=== PATIENT | male | born 1955 | race Caucasian/White ===

== ENCOUNTER 2016-04-29 | Outpatient (CLI) | payer BC | END 2016-04-29 15:51 | disposition EMS.NT | DX: R00.0 Tachycardia, unspecified (principal) ==

== ENCOUNTER 2017-03-10 19:43 | Outpatient (CLI) | payer BC | END 2017-03-10 19:44 | disposition short-term general hospital (02) | LOC: EMS 19:43 | PROVIDERS: ATTEND Surgery | DX: R00.2 Palpitations (principal); R53.83 Other fatigue | CPT/HCPCS: A0425; A0427 ==

== ENCOUNTER 2020-10-03 15:14 | Outpatient (CLI) | payer MEDICARE, OTHER | END 2020-10-03 15:15 | disposition short-term general hospital (02) | LOC: EMS 15:14 | DX: R10.31 Right lower quadrant pain (principal); R11.0 Nausea; I10 Essential (primary) hypertension | CPT/HCPCS: A0425; A0429 ==

== ENCOUNTER 2020-10-18 11:59 | Emergency (ER) | payer MEDICARE, OTHER ==
[2020-10-18 12:35] LABS: BASOPHILS # (AUTO) 0.1 10^3/uL (0.0-0.1); EOSINOPHILS # (AUTO) 0.1 10^3/uL (0.0-0.7); EOSINOPHILS % (AUTO) 1.8 %; HCT - HEMATOCRIT 45.2 % (42.0-52.0); HGB - HEMOGLOBIN 15.2 g/dL (14.0-18.0); LYMPHOCYTES # (AUTO) 1.2 10^3/uL (1.5-3.5); LYMPHOCYTES % (AUTO) 23.1 %; MEAN CORPUSCULAR HEMOGLOBIN 29.3 pg (27.0-31.0); MEAN CORPUSCULAR HGB CONC 33.6 g/dL (32.0-36.0); MEAN CORPUSCULAR VOLUME 87.1 fL (80.0-94.0); MEAN PLATELET VOLUME 9.4 fL (7.4-11.4); MONOCYTES # (AUTO) 0.5 10^3/uL (0.0-1.0); MONOCYTES % (AUTO) 9.1 %; NEUTROPHILS # (AUTO) 3.3 10^3/uL (1.5-6.6); NEUTROPHILS % (AUTO) 64.6 %; PLT - PLATELET COUNT 157 10^3/uL (130-450); RED BLOOD COUNT 5.19 10^6/uL (4.70-6.10); RED CELL DISTRIBUTION WIDTH 15.1 % (12.0-15.0); WHITE BLOOD COUNT 5.1 x10^3/uL (4.8-10.8)
[2020-10-18 12:50] LABS: ALBUMIN 4.4 g/dL (3.2-5.5); ALBUMIN/GLOBULIN RATIO 1.4 (1.0-2.2); BILIRUBIN,TOTAL 0.9 mg/dL (0.2-1.0); CALCIUM 9.4 mg/dL (8.5-10.3); CREATININE 1.3 mg/dL (0.6-1.2); POTASSIUM 3.9 mmol/L (3.5-5.0); TOTAL PROTEIN 7.6 g/dL (6.7-8.2)
[2020-10-18 13:11] LABS: BILIRUBIN,URINE NEGATIVE (NEGATIVE); GLUCOSE, URINE (UA) NEGATIVE (NEGATIVE); KETONES,URINE (UA) NEGATIVE (NEGATIVE); LEUKOCYTE ESTERASE, URINE TRACE (NEGATIVE); NITRITE,URINE POSITIVE (NEGATIVE); OCCULT BLOOD,URINE LARGE (NEGATIVE); PROTEIN,URINE 30 mg/dL (NEGATIVE); UROBILINOGEN,URINE 1 (NORMAL) E.U./dL (NORMAL)
--- NOTE | 2020-10-18 13:27 | ED Physician Documentation ---
History of Present Illness - Stated complaint Stated Complaint: MALE - Chief complaint Chief Complaint: Abd Pain - History obtained from History obtained from: Patient - History of Present Illness Pain level max: 9 Pain level now: 3 - Additonal information Additional information: Patient is a 65-year-old male who presents to the emergency department with ongoing right flank pain. He states about 8 days ago he was diagnosed with a ureteral stone at [facility] in [place]. He states he was placed on pain medication and told that the stone was 6 mm and in the mid ureter. He states he returned to [facility] in [place] 2 days later as he was still having pain and they treated him and released him. He then saw a urologist at [place] who placed a ureteral stent. He states that since the stent placement for 4 days he has noted blood in his urine. He is currently off his Xarelto. Nothing makes it better or worse. He states he contacted the urologist who was not concerned about the hematuria. He then contacted his administrative office specialist who told him to come to the emergency department to have his hemoglobin and hematocrit checked as well as a repeat CT scan for his kidney stone. Patient is afebrile. No fevers at home. No vomiting. No diarrhea. No constipation. Currently feeling well. Review of Systems Ten Systems: 10 systems reviewed and negative Constitutional: denies: Fever, Chills Nose: denies: Rhinorrhea / runny nose, Congestion GI: denies: Vomiting, Diarrhea Skin: denies: Rash Musculoskeletal: denies: Neck pain, Back pain Neurologic: denies: Headache PD PAST MEDICAL HISTORY - Past Medical History Past Medical History: Yes Cardiovascular: Hypertension, High cholesterol, Atrial fibrillation - Present Medications Home Medications: Ambulatory Orders Medication Instructions Recorded Confirmed Propafenone HCl 225 mg PO BID 11/13/15 11/13/15 Rivaroxaban [Xarelto] 20 mg PO DAILY 11/13/15 11/13/15 Simvastatin 20 mg PO DAILY 11/13/15 11/13/15 Tamsulosin [Flomax] 0.4 mg PO ONCE #7 capsule 11/13/15 allopurinoL [Allopurinol] 300 mg PO DAILY 11/13/15 11/13/15 oxyCODONE/ACET 5/325 [Percocet 5 1 - 2 each PO Q6H PRN #20 tablet 11/13/15 mg/325 mg] - Allergies Allergies/Adverse Reactions: Allergies Allergy/AdvReac Type Severity Reaction Status Date / Time lisinopril AdvReac Unknown Verified 10/18/20 12:08 - Social History Does the pt smoke?: No Smoking Status: Never smoker Does the pt drink ETOH?: No Does the pt have substance abuse?: No - Immunizations Immunizations are current?: Yes PD ED PE NORMAL - Vitals Vital signs reviewed: Yes - General General: Alert and oriented X 3, No acute distress - HEENT HEENT: Moist mucous membranes - Neck Neck: Supple, no meningeal sign - Cardiac Cardiac: Strong equal pulses, Other (Irregular) - Respiratory Respiratory: No respiratory distress, Clear bilaterally - Abdomen Abdomen: Soft, Non tender, Non distended - Back Back: No CVA TTP - Derm Derm: Warm and dry - Extremities Extremities: No edema - Neuro Neuro: Alert and oriented X 3 Results - Vitals Vitals: Vital Signs - 24 hr 10/18/20 10/18/20 10/18/20 12:08 13:07 15:24 Temperature 36.5 C 36.5 C 37.1 C Heart Rate 62 62 54 L Respiratory 16 16 12 Rate Blood Pressure 166/81 H 166/81 H 173/103 H O2 Saturation 96 96 98 Oxygen O2 Source Room air - Labs Labs: Laboratory Tests 10/18/20 10/18/20 10/18/20 12:30 12:30 12:55 WBC 5.1 RBC 5.19 Hgb 15.2 Hct 45.2 MCV 87.1 MCH 29.3 MCHC 33.6 RDW 15.1 H Plt Count 157 MPV 9.4 Neut # (Auto) 3.3 Lymph # (Auto) 1.2 L [place] # (Auto) 0.5 Eos # (Auto) 0.1 Baso # (Auto) 0.1 Absolute Nucleated RBC 0.00 Nucleated RBC % 0.0 Sodium 133 L Potassium 3.9 Chloride 99 L Carbon Dioxide 24 Anion Gap 10.0 BUN 16 Creatinine 1.3 H Estimated GFR (MDRD) 55 L Glucose 196 H Calcium 9.4 Total Bilirubin 0.9 AST 77 H ALT 71 H Alkaline Phosphatase 105 Total Protein 7.6 Albumin 4.4 Globulin 3.2 Albumin/Globulin Ratio 1.4 Lipase 139 H Urine Color ORANGE Urine Clarity CLEAR Urine pH 5.0 Ur Specific [place] 1.015 Urine Protein 30 H Urine Glucose (UA) NEGATIVE Urine Ketones NEGATIVE Urine Occult Blood LARGE H Urine Nitrite POSITIVE H Urine Bilirubin NEGATIVE Urine Urobilinogen 1 (NORMAL) Ur Leukocyte Esterase TRACE H Urine RBC 0-5 Urine WBC 6-10 H Ur Squamous Epith Cells RARE Squamous Urine Bacteria Rare Ur Microscopic Review INDICATED Urine Culture Comments INDICATED - Rads (name of study) CT abdomen pelvis Radiology: Prelim report reviewed, EMP read contemporaneously, See rad report PD MEDICAL DECISION MAKING - ED course Complexity details: reviewed results, re-evaluated patient, considered differential, d/w patient, d/w family, d/w case consultant ED course: Discussed the case with the patient's urologist, Dr. Alford. A urine culture was sent. We will have the patient continue his ciprofloxacin. If the culture shows an antibiotic change is needed, We will call him to change this. Patient is well-appearing, nontoxic. Afebrile. No evidence of sepsis. Patient counseled regarding signs and symptoms for which I believe and urgent re- evaluation would be necessary. Patient with good understanding of and agreement to plan and is comfortable going home at this time This document was made in part using voice recognition software. While efforts are made to proofread this document, sound alike and grammatical errors may occur. IMPRESSION: 1. Nonobstructing bilateral renal calculi as above. 2. Right ureterovesicular stent with mild prominence of the right renal pelvis relatively stable compared to prior exam. 3. Thickened bladder wall. This could be secondary to incomplete distention. However, similar imaging appearance can be seen with cystitis and clinical correlation is rec ommended. Departure - Departure Disposition: 01 Home, Self Care Clinical Impression: S/P ureteral stent placement UTI (urinary tract infection) Qualifiers: Urinary tract infection type: acute cystitis Hematuria presence: with hematuria Qualified Code(s): N30.01 - Acute cystitis with hematuria Condition: Good Instructions: ED UTI Cystitis Female Follow-Up: Michael Alford CM, MD [Physician No Access] - Within 1 week Comments: Return if you worsen. Follow up with your urologist regarding your stent. Continue your cipro at home. A urine culture was sent today. Discharge Date/Time: 10/18/20 15:25
[2020-10-18 13:44] LABS: BACTERIA,URINE Rare /HPF (None Seen); CLARITY,URINE CLEAR (CLEAR); RBC,URINE 0-5 /HPF (0-5); SQUAMOUS EPITHELIAL CELL,UR RARE Squamous (<= Few)
--- NOTE | 2020-10-18 14:06 | CT Report ---
PROCEDURE: Abdomen/Pelvis WO INDICATIONS: R flank pain, ureteral stone and stent on R TECHNIQUE: Noncontrast 5 mm thick sections acquired from the diaphragms to the symphysis. 5 mm coronal and sagi ttal reformats were then performed. For radiation dose reduction, the following was used: automated exposure control, adjustment of mA and/or kV according to patient size. COMPARISON: CT abdomen pelvis 11/13/2015 FINDINGS: Image quality: Excellent. ABDOMEN: Lung bases: Lung bases are clear. Heart size is normal. Solid organs: Liver and spleen are normal in size. Gallbladder is unremarkable Pancreas is normal in contours. No adrenal nodules. Kidneys are atrophic bilaterally. A right ureterovesicular stent is present with minimal appearance o f renal collecting system prominence not significantly changed compared to prior exam. There is a 6 m m calcification in the superior right upper renal pole increased in size from 3 mm on prior exam. An adjacent punctate calcification is unchanged. A previously identified more linear calcification later ally is no longer visualized. The left kidney demonstrates a 4 mm superior left renal calcification i ncreased from 2 mm on prior exam. There is a new punctate calcification within the lateral aspect of the left upper pole. No hydronephrosis or hydroureter. No ureteral calcifications. Peritoneum and bowel: Unenhanced bowel loops demonstrate normal wall thickness and caliber. No free fluid or air. On prior exam, there is an ill-defined faint soft tissue/fat density adjacent to the ascending colon measuring approximately 3.4 x 4.2 x 3.9 cm. It is again noted relatively similar in s ize. However, it has now developed vomiting calcifications. This is suspected to be related to prior infection or inflammation. Nodes and vessels: No retroperitoneal or mesenteric adenopathy by size criteria. Aorta and inferior vena cava are normal in caliber. Miscellaneous: No ventral hernias. PELVIS: Genitourinary: Bladder is overall incompletely distended with a thickened wall. Miscellaneous: Bilateral fat-containing inguinal hernias. Bones: No suspicious bony lesions. No vertebral body compression fractures. IMPRESSION: 1. Nonobstructing bilateral renal calculi as above. 2. Right ureterovesicular stent with mild prominence of the right renal pelvis relatively stable comp ared to prior exam. 3. Thickened bladder wall. This could be secondary to incomplete distention. However, similar imaging appearance can be seen with cystitis and clinical correlation is recommended. Reviewed by: Kelsy Muse, MD on 10/18/2020 2:04 PM PDT Approved by: Kelsy Muse MD on 10/18/2020 2:04 PM PDT Station ID: [id number]
[2020-10-18 15:25] VITALS: BP 173/103
== END 2020-10-18 15:25 | disposition home or self-care (01) ==
LOC: ED 11:59
DX: N30.01 Acute cystitis with hematuria (principal); Z96.0 Presence of urogenital implants; Z87.442 Personal history of urinary calculi; I10 Essential (primary) hypertension
CPT/HCPCS: 36415; 80053; 81001; 81003; 83690; 85025; 87086; 99284